=== PATIENT | male | born 1940 | race Caucasian/White ===

== ENCOUNTER 2017-10-17 04:58 | Inpatient (IN) ==
[2017-10-11 13:30] LABS: Appearance,Urine CLEAR; Bacteria,Urine 0 /hpf (0); Bilirubin,Urine NEG (NEG); Color,Urine STRAW; Glucose,Urine (UA) NEGATIVE (NEG); Leukocyte Esterase,Urine NEG /uL (NEG); Protein,Urine 30 mg/dL (NEG); Urine Blood 0.2 mg/dL (<0.03); Urine RBC 0 /hpf (0-1); Urine Squamous Epithelial Cell 0 /hpf (0-4); Urine WBC 1 /hpf (0-4); Urobilinogen,Urine NEG (NEG)
[2017-10-11 14:33] LABS: Blood Urea Nitrogen 12 mg/dl (8-23)
[2017-10-11 15:05] LABS: Basophils # (Auto) 0 K/mcL (0.0-0.3); Basophils % (Auto) 0.2 % (0.0-2.0); Eosinophils # (Auto) 0.2 K/mcL (0.0-0.7); Eosinophils % (Auto) 1.3 % (0.0-7.0); Granulocytes % (Auto) 82.7 % (38.0-78.0); Lymphocytes # (Auto) 1.7 K/mcL (1.5-4.8); Lymphocytes % (Auto) 12.2 % (15.5-49.0); Mean Cell Volume 93.1 fL (80.0-100.0); Mean Corpuscular HGB Conc 33.5 g/dL (31.0-36.0); Mean Corpuscular Hemoglobin 31.2 pg (26.0-34.0); Monocytes # (Auto) 0.5 K/mcL (0.1-0.9); Monocytes % (Auto) 3.6 % (1.0-12.0); Platelet Count 330 K/mcL (140-440); RBC 5.44 M/mcL (4.50-5.90); Red Cell Distribution Width 13.4 % (11.5-14.5)
[~2017-10-17 04:58] MED LIST: IPRATROPIUM/ALBUTEROL 3 ML AMPUL.NEB NEB PRN; SCOPOLAMINE 1 PATCH PATCH TOPICAL PRN
[2017-10-17] MEDS ORDERED: PREGABALIN 75 MG CAPSULE PO SCH (05:00)
[2017-10-17] MEDS ORDERED: oxyCODONE 10 MG TAB.ER.12H PO SCH (05:00)
[2017-10-17] MEDS ORDERED: CELECOXIB 200 MG CAPSULE PO SCH (05:00)
[2017-10-17] MEDS ORDERED: ceFAZolin 1 GM VIAL IV SCH (05:00)
[2017-10-17] MEDS ORDERED: HEPARIN 20,000 UNIT/ML VIAL IR ONE (06:47)
[2017-10-17] MEDS ORDERED: IPRATROPIUM/ALBUTEROL 3 ML AMPUL.NEB NEB ONE (06:58)
[2017-10-17] MEDS ORDERED: fentaNYL 100 MCG/2 ML VIAL IV ONE (07:45)
[2017-10-17] MEDS ORDERED: MIDAZOLAM 5 MG/5 ML VIAL IV ONE (07:45)
[2017-10-17] MEDS ORDERED: SUCCINYLCHOLINE 20 MG/ML ML IV ONE (07:45)
[2017-10-17] MEDS ORDERED: HETASTARCH 6% 500 ML BAG IV ONE (07:45)
[2017-10-17] MEDS ORDERED: ePHEDrine 50 MG/ML AMPUL IV ONE (07:45)
[2017-10-17] MEDS ORDERED: PROPOFOL 200 MG/20 ML VIAL IV ONE (07:45)
[2017-10-17] MEDS ORDERED: ONDANSETRON 4 MG/2 ML VIAL IV ONE (07:45)
[2017-10-17] MEDS ORDERED: NEOSTIGMINE 1 MG/ML VIAL IV ONE (07:45)
[2017-10-17] MEDS ORDERED: EPINEPHrine 1 MG/ML ML IV ONE (07:45)
[2017-10-17] MEDS ORDERED: KETAMINE 100 MG/ML ML IV ONE (07:45)
[2017-10-17] MEDS ORDERED: LIDOCAINE HCL/PF 100 MG/5 ML SYRINGE IV ONE (07:45)
[2017-10-17] MEDS ORDERED: PHENYLEPHRINE 10 MG/ML VIAL IV ONE (07:45)
[2017-10-17] MEDS ORDERED: ONDANSETRON 4 MG/2 ML VIAL IV PRN ×2 (08:59→09:14)
[2017-10-17] MEDS ORDERED: ATROPINE SULFATE 0.4 MG/ML VIAL IV PRN (08:59)
[2017-10-17] MEDS ORDERED: MEPERIDINE 50 MG/ML INJECTION IV PRN (08:59)
[2017-10-17] MEDS ORDERED: fentaNYL 100 MCG/2 ML VIAL IV PRN (08:59)
[2017-10-17] MEDS ORDERED: ePHEDrine 50 MG/ML AMPUL IV PRN (08:59)
[2017-10-17] MEDS ORDERED: METHOCARBAMOL 1,000 MG/10 ML VIAL IV PRN (08:59)
[2017-10-17] MEDS ORDERED: HYDROmorphone 2 MG/ML VIAL IV PRN (08:59)
[2017-10-17] MEDS ORDERED: IPRATROPIUM/ALBUTEROL 3 ML AMPUL.NEB NEB PRN (08:59)
[2017-10-17] MEDS ORDERED: NALOXONE HCL 0.4 MG/ML VIAL IV PRN (08:59)
[2017-10-17] MEDS ORDERED: diphenhydrAMINE 50 MG/ML VIAL IV PRN (08:59)
[2017-10-17] MEDS ORDERED: ACETAMINOPHEN 1,000 MG/100 ML BOTTLE IV ONE (08:59)
[2017-10-17] MEDS ORDERED: PROMETHAZINE 25 MG/ML VIAL IV PRN (08:59)
[2017-10-17] MEDS ORDERED: FLUMAZENIL 0.1 MG/ML ML IV PRN (08:59)
[2017-10-17] MEDS ORDERED: LACTATED RINGERS 1,000 ML IV SCH (09:00)
[2017-10-17] MEDS ORDERED: MAGNESIUM HYDROXIDE 30 ML ORAL.SUSP PO PRN (09:14)
[2017-10-17] MEDS ORDERED: TRANEXAMIC ACID 1,000 MG/10 ML VIAL IV ONE (09:14)
[2017-10-17] MEDS ORDERED: POLYETHYLENE GLYCOL 3350 17 GM PACKET PO PRN (09:14)
[2017-10-17] MEDS ORDERED: KETOROLAC 15 MG/ML VIAL IV PRN (09:14)
[2017-10-17] MEDS ORDERED: METHOCARBAMOL 750 MG TABLET PO PRN (09:14)
[2017-10-17] MEDS ORDERED: BENZOCAINE/MENTHOL 1 LOZENGE PO PRN (09:14)
[2017-10-17] MEDS ORDERED: BISACODYL 10 MG SUPP.RECT PR PRN (09:14)
[2017-10-17] MEDS ORDERED: FLEETS ADULT ENEMA PR PRN (09:14)
--- NOTE | 2017-10-17 09:14 | Brief Operative Note ---
Date of procedure: 10/17/17 Pre-op diagnosis: Right hip DJD Post-op diagnosis: same Procedure: Right anterior total hip arthroplasty Grafts/Implants: Yes (Depuy Actis 11 std stem, 1.5 36 delta head, 58 cup, neutral altrx liner) Anesthesia: spinal, GLMA Findings: arthritis Complications: none Surgeon: Hemant Dinero Skein Bander: Jonah Camara Estimated blood loss (cc): 300 Specimens Removed/Pathology: none sent Condition: stable Disposition: PACU
[2017-10-17] MEDS ORDERED: PSEUDOEPHEDRINE PO PRN (09:19)
[2017-10-17] MEDS ORDERED: FLUTICASONE PROPIONATE TP PRN (09:19)
[2017-10-17] MEDS ORDERED: ALBUTEROL SULFATE 1 PUFF INHALER IH PRN (09:19)
[2017-10-17] MEDS ORDERED: CYCLOBENZAPRINE 10 MG TABLET PO PRN (09:19)
[2017-10-17] MEDS ORDERED: CETIRIZINE HCL PO PRN (09:19)
[2017-10-17] MEDS ORDERED: WARFARIN 10 MG TABLET PO SCH (09:30)
[2017-10-17] MEDS ORDERED: WARFARIN 7.5 MG TABLET PO SCH (09:30)
--- NOTE | 2017-10-17 10:11 | XRay Report ---
CLINICAL INFORMATION: Reason for Exam:Post-op Total Hip COMPARISON: None. FINDINGS: Right hip prostheses is anatomically aligned. Older left hip prostheses is also anatomically aligned without evidence of loosening or infection. No osseous abnormality. Moderate L4-5 and L5-S1 degenerative disc disease appreciated IMPRESSION: Right total hip prostheses is anatomically aligned. Negative exam Interpreted and Authenticated by: Jaiden Romero 10/17/17
[2017-10-17] MEDS ORDERED: WARFARIN 7.5 MG TABLET PO ONE (14:00)
[2017-10-17] MEDS: 0.9 % SODIUM CHLORIDE 10 ML SYRINGE IV SCH ×2 (14:58→22:59)
[2017-10-17] MEDS: LACTATED RINGERS 1,000 ML IV SCH ×3 (15:08→23:31)
[2017-10-17] MEDS: ceFAZolin 1 GM VIAL IV SCH ×2 (15:17→23:32)
--- NOTE | 2017-10-17 15:49 | XRay Report ---
CLINICAL INFORMATION: Reason for Exam:RIGHT ANTERIOR TOTAL HIP COMPARISON: None. FINDINGS: Multiple digital images are submitted. Final images show right total hip prostheses in anatomic position - no osseous abnormality. IMPRESSION: Right hip prostheses in anatomic position Interpreted and Authenticated by: Jaiden Romero 10/17/17
[2017-10-17] MEDS: AMOXICILLIN/POTASSIUM CLAV 875 MG TABLET PO SCH (17:02)
[2017-10-17] MEDS ORDERED: SENNOSIDES 1 TABLET PO SCH (21:00)
[2017-10-17] MEDS ORDERED: LISINOPRIL 10 MG TABLET PO SCH (21:00)
[2017-10-17] MEDS ORDERED: TAMSULOSIN 0.4 MG CAPSULE PO SCH (21:00)
[2017-10-17] MEDS ORDERED: OMEPRAZOLE 20 MG CAPSULE PO SCH (21:00)
[2017-10-17] MEDS: HYDROCODONE/APAP 7.5/325MG TABLET PO PRN (21:37)
[2017-10-17] MEDS: DOCUSATE SODIUM 100 MG CAPSULE PO SCH (21:37)
[2017-10-17] MEDS: Budesonide/Formoterol Fumarate [Symbicort] 160/4.5 mcg Inhaler INH SCH (21:38)
[2017-10-18] MEDS: HYDROCODONE/APAP 7.5/325MG TABLET PO PRN ×2 (05:25→09:31)
[2017-10-18] MEDS: 0.9 % SODIUM CHLORIDE 10 ML SYRINGE IV SCH (05:27)
[2017-10-18] MEDS ORDERED: predniSONE 20 MG TABLET PO SCH (08:00)
--- NOTE | 2017-10-18 08:06 | Discharge Summary ---
Providers - Providers Patient information: Note initiated : 10/18/17 at 8:01 am Service Date, if different from initiated Date: [] Patient: Jaiden Urias 77 y/o M admitted on 10/17/17 for Right Total Hip Arthroplasty Anterior . Chief Complaint: [] Discharge date: 10/18/17 Hospitalization Hospital course: Pt was admitted for a R total hip arthroplasty. Pt was admitted on the day of the procedure and spent one night on the floor prior to discharge for IV abx, IV pain meds and PT. Pt will attend out-pt PT. Will f/u at [facility] in 2 weeks. Will Coumadin and bridging therapy per his PCP for DVT prophylaxis. Discharge diagnosis: R hip OA Exam - Exam Clean and dry: Yes Weight bearing status: as tolerated Ortho Discharge - [facility] - Patient Instructions Diet: Regular Diet Activity: activity as tolerated Total Hip Protocol: Follow activity instructions as provided by Physical Therapy. Dressing Care: May shower in 2 days - Follow Up Plan Follow Up Appointments: Hemant Dinero MD [Physician] - 11/01/17 1:10 pm Disposition: Home, Self-Care Prognosis: Good Rehab Potential: Good Overall status at discharge: patient is progressing back to baseline - Orders For Discharge Prescriptions: Cyclobenzaprine [Flexeril] 5 mg PO BIDP PRN #16 tab PRN Reason: spasm HYDROcodone/APAP 10/325MG [Adamant 10-325Mg] 1 - 2 tab PO Q4H PRN #75 tab PRN Reason: Pain Pending Studies Resuscitation Status Full Code Diet Regular Diet Start SunOct 17 1301 Hydrocodone Bitart/Acetaminophen (Adamant 7.5/325mg) 0 tab PO Q4HP PRN PRN Reason: PAIN LEVEL 3-6 Last Admin: 10/18/17 05:25 Dose: 1 tab Admin: 10/17/17 21:37 Dose: 1 tab Amoxicillin[facility]an[facility] Admin: 10/17/17 17:02 Dose: 875 mg Docusate Sodium (Colace) 100 mg PO BID [facility] Last Admin: 10/17/17 21:37 Dose: 100 mg Lactated Ringer's (Lactated Ringers) 1,000 mls @ 125 mls/hr IV .Q8H [facility] Last Infusion: 10/18/17 06:58 Dose: 0 mls/hr Admin: 10/17/17 23:31 Dose: 125 mls/hr Infusion: 10/17/17 23:08 Dose: 125 mls/hr Admin: 10/17/17 16:44 Dose: Admin: 10/17/17 15:08 Dose: 125 mls/hr Lisinopril (Zestril) 10 mg PO [facility] Last Admin: 10/17/17 21:37 Dose: 10 mg Omeprazole (Prilosec) 20 mg PO [facility] Last Admin: 10/17/17 21:37 Dose: 20 mg Budesonide/Formoterol Fumarate [Symbicort] 160/4.5 Mcg Inhaler 1 dose INH BID [facility] Last Admin: 10/17/17 21:38 Dose: 1 dose Senna (Senokot) 2 tab PO [facility] Last Admin: 10/17/17 21:37 Dose: 2 tab Sodium Chloride (Saline Flush) 10 ml IV Q8 [facility] Last Admin: 10/18/17 05:27 Dose: Not Given Admin: 10/17/17 22:59 Dose: Not Given Admin: 10/17/17 14:58 Dose: Not Given Tamsulosin HCl (Flomax) 0.4 mg PO [facility] Last Admin: 10/17/17 21:37 Dose: 0.4 mg Shift Summary 10/18/17 02:10 Shift Summary by Sindy Strauss Addendum entered by Sindy Strauss R.N. 10/18/17 05:20: Baez catheter removed at 0519H. Patient would like to talk to the doctor this morning about his oral antibiotic. Original Note: Patient slept off and on this shift. Medicated for right hip pain with Hydrocodone 1 tab x1 with good effect. Ambulated to the hallway 350 ft last night. IVF LR@125 infusing well on LFA. FC draining large volumes of urine. Patient uses IS 2500 level. Right hip dressing CDI. Ice pack applied. Foot pumps on. Patient uses his CPAP at night. VSS. Patient concerned about his antibiotics that his ENT doctor would like him to start for his sinus infection. Patient would like to talk to Dr. Dinero tomorrow about it. Initialized on 10/18/17 02:10 - END OF NOTE
[2017-10-18] MEDS: Budesonide/Formoterol Fumarate [Symbicort] 160/4.5 mcg Inhaler INH SCH (09:30)
[2017-10-18] MEDS: AMOXICILLIN/POTASSIUM CLAV 875 MG TABLET PO SCH (09:30)
[2017-10-18] MEDS: LACTATED RINGERS 1,000 ML IV SCH (09:31)
[2017-10-18] MEDS: DOCUSATE SODIUM 100 MG CAPSULE PO SCH (09:31)
[2017-10-18] MEDS ORDERED: ENOXAPARIN 60 MG/0.6 ML SYRINGE SQ ONE (10:06)
--- NOTE | 2017-10-18 10:20 | Operative Note ---
DATE OF OPERATION: 10/17/2017 PREOPERATIVE DIAGNOSIS: Right hip severe osteoarthritis. POSTOPERATIVE DIAGNOSIS: Right hip severe osteoarthritis. PROCEDURE PERFORMED: Right anterior total hip arthroplasty placing a DePuy Actis size 11 standard offset femoral stem, a +1.5, 36 mm delta ceramic head ball with a 58 [place] cup and a neutral AltrX liner. SURGEON: Hemant Dinero MD. WATCH REPAIRER: Navi Camara PA-C. ANESTHESIA: Spinal plus general. DRAINS: None. SPECIMENS: None. COMPLICATIONS: None. POSTOPERATIVE CONDITION: Stable. INDICATIONS FOR SURGERY: This is a 77-year-old male who has had longstanding bilateral hip pain. Radiographs showed severe arthrosis. He had recently undergone a left total hip arthroplasty with good result and wished to proceed with his right. FINDINGS AT SURGERY: As above. Post implantation showed good component position with leg length equalization. PROCEDURE IN DETAIL: The patient had been seen preoperatively. Informed consent had been obtained after discussion of risks, benefits of surgery. Risks including, but not limited to, bleeding, possibly requiring transfusion; infection, possibly requiring implant removal and prolonged IV antibiotics; injury to nerves, blood vessels, and other surrounding structures; anesthetic risks; incomplete or no resolution of symptoms; leg length discrepancy; DVT; possibility of needing further revision surgery. He understood these risks and wished to proceed. Correct operative site was marked and patient was taken to the operating room. General anesthesia was induced. He was carefully positioned on the fracture table and then the right hip and groin were carefully prepped and draped in normal sterile fashion and a timeout was performed verifying patient name, operative site, and plan. Standard anterior approach incision was made with a scalpel through skin and subcutaneous tissue and then hemostasis obtained with Bovie cautery. Blunt dissection was taken down onto the tensor fascia. We then undermined circumferentially and a ring retractor was placed after irrigating IrriSept. We then incised the tensor fascia in line with muscle fibers and bluntly dissected medial to the muscle belly. Blunt cobra retractors were placed on the superior and inferior neck. Circumflex vessels were coagulated and cut and vastus fascia split distally. Anterior capsulectomy was performed and capsule releases performed. A corkscrew was placed in the femoral head. Osteotome was used under fluoro to identify our neck cut trajectory and then oscillating saw was used to make our neck cut. Femoral head was removed and the acetabulum exposed. Labrum was excised circumferentially as well as soft tissue from the floor. We then reamed up to a size 57 reamer which got good rim ream. We opened a 58 cup. Acetabulum was irrigated with IrriSept and after a minute we pulse lavaged and then a cup was impacted at approximately 35 to 40 degrees of inclination and 25 degrees of anteversion. We got excellent press fit. A neutral AltrX liner was opened, center hole cover placed. The liner was carefully aligned and impacted. Traction was removed from the leg and externally rotated, extended and adducted. We went ahead and broached up to a size 11 Actis stem, a +1.5 neck trial was placed and the hip was reduced. Fluoro was brought in and Ortho grid used to identify our leg lengths, which were nearly equal, so we went ahead and redislocated. Definitive implants were opened. We went ahead and irrigated with IrriSept down the femoral canal, after a minute pulse lavage and then the stem was impacted, which seated fully on the neck. We then opened and impacted the head ball after carefully cleaning and drying the stem. The hip was reduced without excessive tension. Final fluoro images were taken. IrriSept was irrigated again and after a minute we pulse lavaged. We then closed the tensor fascia with #1 Vicryl. A final IrriSept irrigation was done, after a minute final pulse lavage and then 2-0 Monocryl and katie for skin. Xeroform sterile dressings were applied. The patient was then awakened, extubated, and transferred to recovery in stable condition. BJB:gisselle Job ID: [id number] Doc ID: [id number] Hemant Dinero MD
== END 2017-10-18 13:10 | disposition home or self-care (01) | DRG 470 ==
LOC: MEDSUR 04:58
PROVIDERS: ADMIT Orthopaedic Surgery; ATTEND Orthopaedic Surgery